=== PATIENT | male | born 1985 | race Caucasian/White ===

== ENCOUNTER 2022-02-07 14:20 | Emergency (ER) | payer MEDICAID, SELFPAY ==
[2022-02-07 14:26] VITALS: BP 112/68; PULSE 96; RESP 20; TEMP 37.1; O2SAT 98; BMI 32.4
--- NOTE | 2022-02-07 16:00 | ED_ITS ---
HPI - Wound/Laceration General Chief Complaint: Laceration/Wound Stated Complaint: Wound on Left Middle Finger Time Seen by Provider: 02/07/22 14:38 History of Present Illness HPI narrative: 36-year-old man presenting to the emergency department with his friend with concern of a laceration to the 3rd finger of the left hand by an angle terrazzo grinder. Apparently was projecting at home. Is current on tetanus. Does not think it is terribly deep. Has not taken any pain medication. Has been lightly bleeding but mostly slowed. He says he does not think it involves the bone because he can move his finger demonstrating moving his entire finger. Related Data Home Medications Medication Instructions Recorded Confirmed No Known Home Medications 02/07/22 02/07/22 Allergies Allergy/AdvReac Type Severity Reaction Status Date / Time No Known Drug Allergies Allergy Verified 02/07/22 14:29 Review of Systems Status of ROS: Reports: 6 or more systems reviewed and unremarkable except as noted in History and below PFSH PFS Social History Smoking Status: Current every day smoker What tobacco products do you use: cigarettes Do you use any of these nicotine containing products: E-Cigarettes Second hand tobacco smoke exposure: No How often do you have a drink containing alcohol: monthly or less AUDIT-C Alcohol total score: 1 Non-prescribed substance use: denies use Exam Narrative: Exam Narrative: Pleasant. NAD. Mildly anxious. Exam conducted by myself in Maori in some of his Maltese. Skin otherwise is warm and dry. Injury is limited to the distal aspect of the 3rd finger of the right hand. There is a laceration involving. Lunar skin r unning diagonally through the distal aspect of the nail and nailbed and then cutting the distal skin again. Total length laceration cm and half. This was soaking in saline water my initial evaluation. Return to anesthetize the finger left for some repair and better exam. Injected initially with Marcaine digital block. Some anesthesia is achieved at the still present on the ulnar distal finger. Return to inject further with the lidocaine further anesthesia achieved but ultimately never fully anesthetized. It does allow though for further examination do not see bony involvement. There is some understandable a cautery of the surface. I did scrub this finger with a Shur- Clens solution. Was able to place 1 5-0 Ethilon suture in the distal finger tip. Placement initiated on nail to stabilize laceration but this was too painful. Did have to return as above for repeat anesthesia. Ultimately seemed to be well adhered and felt could stabilize with bandaging. Antibiotic ointment and Band-Aid applied. Also placed a splint for protection. Const: Vital Signs, click to edit/add: Vital Signs - 24 hr 02/07/22 14:26 Temperature 98.8 F Pulse Rate [Right Pulse Oximeter] 96 Respiratory Rate 20 Blood Pressure [Ri ght Upper Arm] 112/68 Pulse Oximetry 98 Oxygen Delivery Me thod Room Air Documenting provider has reviewed patient's vital signs: yes Course Vital Signs Vital signs: Initial Vital Signs Temperature 98.8 F 02/07/22 14:26 Temperature Source Temporal Artery Scan 02/07/22 14:26 Pulse Rate 96 02/07/22 14:26 Respiratory Rate 20 02/07/22 14:26 Blood Pressure 112/68 02/07/22 14:26 Blood Pressure Mean 82 02/07/22 14:26 Blood Pressure Position Sitting 02/07/22 14:26 Pulse Oximetry 98 02/07/22 14:26 Oxygen Delivery Method 02/07/22 14:26 Vital Signs Temperature 98.8 F 02/07/22 14:26 Pulse Rate 96 02/07/22 14:26 Respiratory Rate 20 02/07/22 14:26 Blood Pressure 112/68 02/07/22 14:26 Pulse Oximetry 98 02/07/22 14:26 Oxygen Delivery Method 02/07/22 14:26 Temperature 98.8 F 02/07/22 14:26 Pulse Rate 96 02/07/22 14:26 Respiratory Rate 20 02/07/22 14:26 Blood Pressure 112/68 02/07/22 14:26 Pulse Oximetry 98 02/07/22 14:26 Oxygen Delivery Method 02/07/22 14:26 Discharge Plan Discharge Clinical Impression: Laceration of finger nail bed Patient Disposition: Home, Self-Care Condition: Improved Additional Instructions: Change dressing daily with antibiotic ointment for 3-4 days; then to a dry dressing. Suture out in 7 days. Okay to get wet but avoid soaking for the 1st week. May need to keep protected in some way as the nail continues to grow out. Trim the nail edges as available. Watch for spreading redness past the 1st knuckle, marked increase in pain/sw elling/heat, purulent drainage. Ibuprofen and elevation for comfort. Tonight if you need, here are a few [place] from [facility] el ap?sito diariamente con aundrae?ento antibi?rod sawyer 3-4 d?as; luego a un aderezo seco. Sutura en 7 d?as. Est? wayne mojarse, davide evite remojarse sawyer la 1? semana. Es posible que deba mantenerse protegido de alguna manera a medida que la u?a contin?a creciendo. Recorte los bordes de las u?as seg?n sea posible. Est? atento a la propagaci?n del enrojecimiento m?s all? del 1er nudillo, marcado aumento del dolor / hinchaz?n / calor, drenaje purulento. Ibuprofeno y elevaci?n para mayor comodidad. Esta noche, si lo necesita, aqu? hay algunos [place] de [facility] Prescriptions: No Action No Known Home Medications Follow Up/Referrals: Sarthak Carednas MD [Primary Care Provider] - Stand Alone Forms: [employer] Info Instructions
[2022-02-07] MEDS: BUPIVACAINE 0.25% 30 ML INJECTION (16:40)
--- NOTE | 2022-02-07 17:21 | ED.NURSE ---
Finger splint placed by
== END 2022-02-07 17:24 | disposition home or self-care (01) ==
PROVIDERS: Emergency Provider Family Medicine; PCP Surgery
DX: S61.313A Laceration without foreign body of left middle finger with damage to nail, initial encounter (principal); W31.2XXA Contact with powered woodworking and forming machines, initial encounter
CPT/HCPCS: 12001; 99283; J3490

== ENCOUNTER 2022-06-08 11:37 | Emergency (ER) | payer MEDICAID, SELFPAY ==
[2022-06-08 11:46] VITALS: BP 112/70; PULSE 69; RESP 22; TEMP 36.4; O2SAT 99; BMI 29.4
--- NOTE | 2022-06-08 12:01 | ED.ABDPAIN ---
HPI - Abdominal Pain General Chief Complaint: Abdominal Pain Stated Complaint: Severe stomach pain Time Seen by Provider: 06/08/22 11:53 History of Present Illness HPI narrative: This 37-year-old male comes in with severe distress complaining of pain in his upper epigastric region and radiating around to his back on the right side. He states that this pain began about 9 hours prior to arrival, at 3:00 a.m. in the morning. He has otherwise been in good health. Related Data Previous Rx's Medication Instructions Recorded hydrocodone 5 mg-acetaminophen 325 1 tab PO Q4-6H PRN pain #10 tabs 06/08/22 mg tablet Allergies Allergy/AdvReac Type Severity Reaction Status Date / Time No Known Drug Allergies Allergy Verified 06/08/22 11:53 Review of Systems Status of ROS Reports: 10 or more systems reviewed and unremarkable except as noted in History and below Narrative Constitutional: No fevers, no weight gain or loss. Eyes: No discharge. No vision changes. HENT: No congestion, no sore throat, no ear pain. Cardiovascular: No chest pain, no palpitations. Respiratory: No shortness of breath, no wheezes, no cough. Gastrointestinal: Severe upper epigastric abdominal pain. Genitourinary: No dysuria, no hematuria. Musculoskeletal: Normal range of motion. Skin: No rashes, no pruritis. Neurological: No dizziness, weakness, sensory change, speech change. Endo/Heme/Allergies: No bruising or bleeding. No polydipsia. Pysch: no suicidality, no anxiety, no insomnia. All other systems reviewed and are negative. PFSH [facility] Social History Smoking Status: Current every day smoker What tobacco products do you use: cigarettes Do you use any of these nicotine containing products: E-Cigarettes Second hand tobacco smoke exposure: No How often do you have a drink containing alcohol: monthly or less How many standard drinks containing alcohol do you have on a typical day: 1 or 2 AUDIT-C Alcohol total score: 1 Non-prescribed substance use: denies use service: No Exam Narrative: Exam Narrative: Constitutional: Well-developed, well-nourished, no acute distress. HEENT: Normocephalic, atraumatic. Neck: Normal range of motion. Nontender. Supple. Heart: Regular. No murmurs. Normal rate. Intact distal pulses. Lungs: Clear to auscultation. No chest discomfort. No wheezes, rhonchi, or rales. Abdomen: Severe tenderness in the upper epigastric region. No particular tenderness on palpating in the right upper quadrant. Genitalia: Deferred. Back: No midline tenderness. Normal range of motion. Extremities: Normal range of motion. No injury. Skin: Intact. No rash. Warm. No erythema or pallor. Neurologic: No altered sensation. No weakness. Alert and oriented. Psychiatric: No suicidality. No anxiety or depression. No insomnia. Nursing notes and vitals signs are reviewed. Const: Vital Signs, click to edit/add: Vital Signs - 24 hr 06/08/22 11:46 Temperature 97.6 F Pulse Rate [Right Pulse Oximeter] 69 Respiratory Rate 22 Blood Pressure [Ri ght Upper Arm] 112/70 Pulse Oximetry 99 Oxygen Delivery Me thod Room Air Course Vital Signs Vital signs: Initial Vital Signs Temperature 97.6 F 06/08/22 11:46 Temperature Source Temporal Artery Scan 06/08/22 11:46 Pulse Rate 69 06/08/22 11:46 Respiratory Rate 22 06/08/22 11:46 Blood Pressure 112/70 06/08/22 11:46 Blood Pressure Mean 84 06/08/22 11:46 Blood Pressure Position Sitting 06/08/22 11:46 Pulse Oximetry 99 06/08/22 11:46 Oxygen Delivery Method 06/08/22 11:46 Vital Signs Temperature 97.6 F 06/08/22 11:46 Pulse Rate 69 06/08/22 11:46 Respiratory Rate 22 06/08/22 11:46 Blood Pressure 112/70 06/08/22 11:46 Pulse Oximetry 99 06/08/22 11:46 Oxygen Delivery Method 06/08/22 11:46 Temperature 97.6 F 06/08/22 11:46 Pulse Rate 69 06/08/22 11:46 Respiratory Rate 22 06/08/22 11:46 Blood Pressure 112/70 06/08/22 11:46 Pulse Oximetry 99 06/08/22 11:46 Oxygen Delivery Method 06/08/22 11:46 MDM - Abdominal Pain MDM Narrative Medical decision making narrative: This patient comes in with severe upper epigastric abdominal pain. He did receive a GI cocktail initially which brought no relief to his symptoms. An IV was established where he received Dilaudid 0.5 mg which brought good relief to his pain. Ultrasound of the right upper quadrant does show large stone in the neck of the gallbladder. Lab results returned with some elevation of bilirubin and liver enzymes suspicious for some degree of obstruction. His temperature is normal and his white count is also normal. I spoke with the surgeon on-call, Dr. Robles, who will arrange for removal of the gallbladder tomorrow. She recommended 1 gram of ertapenem given now intravenously. Patient is okay to be discharged home and is scheduled to have surgery at 11:20 a.m. tomorrow. He is instructed to arrive at 10:00 a.m. and no food or drink after midnight. He is discharged home with a prescription for [place]. Lab Data Labs: Lab Results 06/08/22 06/08/22 06/08/22 Range/Units 12:20 12:20 15:24 WBC 7.17 (4.50-11.00) K/uL RBC 5.49 (4.30-5.90) m/uL Hgb 15.7 (13.5-17.5) gm/dL Hct 45.6 (37.0-53.0) % MCV 83 (80-100) fL MCH 29 (26-34) pg MCHC 34 (32-36) gm/dL RDW Coeff of Josefina 12.9 (11.5-15.5) % Plt Count 395 (140-440) K/uL Neut % (Auto) 59.4 (42.0-72.0) % Lymph % (Auto) 31.8 (20-44) % [place] % (Auto) 6.8 (0.0-11.0) % Eos % (Auto) 1.0 (0.0-7.0) % Baso % (Auto) 0.7 (0.0-3.0) % Neut # (Auto) 4.26 (1.7-7.0) K/uL Lymph # (Auto) 2.28 (0.90-2.90) K/uL [place] # (Auto) 0.50 (0.00-0.90) K/UL Eos # (Auto) 0.07 (0.00-0.50) K/uL Baso # (Auto) 0.05 (0.00-0.30) K/uL Sodium 138 (135-149) mmol/L Potassium 4.3 (3.6-5.1) mmol/L Chloride 108 (96-114) mmol/L Carbon Dioxide 24 (20-32) mmol/L BUN 12 (5-24) mg/dL Creatinine 0.6 (0.5-1.5) mg/dL Estimated Creat Clear 160.66 Estimated GFR 129 ml/min Glucose 100 (60-115) mg/dL Calcium 8.9 (8.4-10.6) mg/dL Total Bilirubin 1.7 H (0.1-1.5) mg/dL Direct Bilirubin 0.9 H (0.0-0.5) mg/dL AST 387 H (12-35) U/L ALT 278 H (4-50) U/L Alkaline Phosphatase 86 (40-150) U/L Total Protein 8.6 H (6.0-8.3) g/dL Albumin 4.8 (3.3-5.0) g/dL Lipase 203 (23-300) U/L SARS-CoV-2 (PCR) Negative SARS-CoV-2 (Negative) Discharge Plan Discharge Clinical Impression: Cholelithiasis Patient Disposition: Home w/ Parent or Adult Condition: Stable Additional Instructions: Take medication as needed for pain. Take no food or drink after midnight tonight. Return at 10:00 a.m. in the morning to prepare for surgical removal of the gallbladder. Prescriptions: New hydrocodone-acetaminophen 5-325 mg tablet 1 tab PO Q4-6H PRN (Reason: pain) Qty: 10 0RF Follow Up/Referrals: Sarthak Cardenas MD [Primary Care Provider] - Stand Alone Forms: [employer] Info Instructions
[2022-06-08] MEDS: ONDANSETRON 2 MG/ML inj 4 MG IVP (12:28)
[2022-06-08] MEDS: GI COCKTAIL (VISC LIDO/ANTACID) 30 ML PO (12:28)
[2022-06-08 12:29] LABS: Basophils Absolute Auto 0.05 K/uL (0.00-0.30); Basophils Percent Auto 0.7 % (0.0-3.0); Eosinophils Absolute Auto 0.07 K/uL (0.00-0.50); Hematocrit 45.6 % (37.0-53.0); Hemoglobin* 15.7 gm/dL (13.5-17.5); Immature Granulocytes Abs Auto 0.02 K/uL (0.00-0.30); Immature Granulocytes Pct Auto 0.3 %; Lymphocytes Absolute Auto 2.28 K/uL (0.90-2.90); Lymphocytes Percent Auto 31.8 % (20-44); Mean Corpuscular HGB Conc 34 gm/dL (32-36); Mean Corpuscular Hemoglobin 29 pg (26-34); Mean Corpuscular Volume 83 fL (80-100); Monocytes Percent Auto 6.8 % (0.0-11.0); Neutrophils Absolute Auto 4.26 K/uL (1.7-7.0); Neutrophils Percent Auto 59.4 % (42.0-72.0); Platelet Count* 395 K/uL (140-440); RDW Coefficient of Variation % 12.9 % (11.5-15.5); Red Blood Count 5.49 m/uL (4.30-5.90); White Blood Count* 7.17 K/uL (4.50-11.00)
[2022-06-08 12:36] LABS: Slide Review Reflex No
[2022-06-08 12:44] LABS: Albumin* 4.8 g/dL (3.3-5.0)
[2022-06-08 12:45] LABS: Chloride* 108 mmol/L (96-114); Potassium* 4.3 mmol/L (3.6-5.1); Sodium* 138 mmol/L (135-149)
[2022-06-08 12:47] LABS: Alkaline Phosphatase* 86 U/L (40-150); Aspartate Amino Transferase* 387 U/L (12-35); Bilirubin Direct* 0.9 mg/dL (0.0-0.5); Bilirubin Total* 1.7 mg/dL (0.1-1.5); Blood Urea Nitrogen* 12 mg/dL (5-24); Carbon Dioxide* 24 mmol/L (20-32); Creatinine* 0.6 mg/dL (0.5-1.5); Est. Creatinine Clearance* 160.66; Estimated Glomerular Filt Rate 129 ml/min; Total Protein* 8.6 g/dL (6.0-8.3)
[2022-06-08 12:48] LABS: Alanine Aminotransferase* 278 U/L (4-50); Calcium* 8.9 mg/dL (8.4-10.6); Glucose* 100 mg/dL (60-115); Lipase* 203 U/L (23-300)
--- NOTE | 2022-06-08 13:14 | CRLHL7_ITS ---
For Patients: As a result of the Century Cures Act, medical imaging exams and procedure reports are released immediately into your electronic medical record. You may view this report before your referring provider. If you have questions, please contact your health care provider. INDICATION: Epigastric pain TECHNIQUE: Ultrasound abdomen limited. Sonographic images of the right upper quadrant were obtained using pearce-scale and color Doppler images. COMPARISON: CT chest, abdomen and pelvis 12/10/2020 FINDINGS: Liver: The liver demonstrates diffusely increased echogenicity, consistent with hepatic steatosis. No masses. No intrahepatic biliary dilatation. Gallbladder: There is a gall stone within the gallbladder neck. The gallbladder is nondistended. Normal wall thickness. No pericholecystic fluid. Common bile duct: The common bile duct is visualized. Pancreas: Pancreas is obscured by overlying bowel gas. Right kidney: 10.6 cm. Normal echotexture and cortex. No masses, stones, or hydronephrosis. Vasculature: The proximal IVC is unremarkable. The aorta is obscured by overlying bowel gas. IMPRESSION: 1. Cholelithiasis with a positive sonographic Fink sign. No additional secondary signs of acute cholecystitis, therefore evaluation is equivocal for early acute cholecystitis. Recommend correlation with exam and LFTs. 2. Nondiagnostic evaluation of the pancreas and common bile duct. 3. Hepatic steatosis. Dictated by Piedad Gonzales MD @ 06/08/2022 3:10:20 PM (Electronically Signed)
[2022-06-08] MEDS: HYDROmorphone 0.5 mg/0.5 ml inj IVP (13:24)
[2022-06-08] MEDS: ERTAPENEM 1 GM in 0.9 % SODIUM CHLORIDE Mini-bag 100 ML IVPB (15:21)
[2022-06-08 16:01] LABS: SARS PCR* Negative SARS-CoV-2 (Negative)
--- NOTE | 2022-06-08 16:38 | P.GSCN_ITS ---
History of Present Illness Consult details Date Seen: 06/08/22 Consult date: 06/08/22 Narrative: 37-year-old male presented to emergency room with epigastric abdominal pain, and I was asked by Dr. Velasquez to see him in consultation. Patient states that his abdominal pain started last night at 3:00 a.m. in the morning. The pain woke him up from sleep. The pain was sharp and getting worse. Patient had nausea but no vomiting. He had pork for dinner the night before. He has never had anything similar to this. The pain radiates to his back and it is painful to take a deep breath. Patient denies taking Advil. He does drink alcohol once in a while and yesterday had 4 beers. I reviewed patient's chart. He was found to have a normal WBC of 7.1. Total bilirubin 1.7, direct bilirubin 0.9, AST 387, ALT 278, normal alkaline phosphatase and normal lipase. Patient had an ultrasound of his gallbladder that showed the stone near the neck of the gallbladder, the gallbladder wall was 2 mm thick. The common bile duct was not visualized. Review of Systems Narrative: General: no fevers HENT: no problems swallowing CV: no shortness of breath Resp: no cough GI: See above : no dysuria, no increased urinary frequency, no hematuria Skin: no new rashes Musculoskeletal: + back pain radiating from the abdomen Neuro: no muscle weakness Psyche: + depression [facility] Medical History (Updated 06/08/22 @ 16:42 by Jose Rodriguez MD) Depression Social History (Updated 06/08/22 @ 16:43 by Jose Rodriguez MD) Narrative: Patient admits to smoking and drinking alcohol once a month. 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 Smoking Status: Current every day smoker What tobacco products do you use: cigarettes Do you use any of these nicotine containing products: E-Cigarettes Second hand tobacco smoke exposure: No How often do you have a drink containing alcohol: monthly or less How many standard drinks containing alcohol do you have on a typical day: 1 or 2 AUDIT-C Alcohol total score: 1 Non-prescribed substance use: denies use service: No Meds Home Medications and Allergies Allergies Allergy/AdvReac Type Severity Reaction Status Date / Time No Known Drug Allergies Allergy Verified 06/08/22 11:53 Exam Narrative: Exam Narrative: General appearance: Alert, cooperative, and in no distress Pulmonary: Chest symmetric, lungs clear bilaterally Cardiovascular Heart: Regular rate and rhythm, S1, S2, no murmurs/rubs/gallops Gastrointestinal Abdominal: soft, not distended, tender to palpation in epigastrium and medial right upper quadrant with equivocal Fink sign. Skin: Normal skin color, texture, and turgor. No rashes or lesions. Psychiatric: Alert, cooperative, normal affect. Const: Vital Signs, click to edit/add: Vital Signs - 24 hr 06/08/22 11:46 Temperature 97.6 F Pulse Rate [Right Pulse Oximeter] 69 Respiratory Rate 22 Blood Pressure [Ri ght Upper Arm] 112/70 Pulse Oximetry 99 Oxygen Delivery Me thod Room Air Results Labs Labs: Abnormal lab results 06/08/22 Range/Units 12:20 Total Bilirubin 1.7 H (0.1-1.5) mg/dL Direct Bilirubin 0.9 H (0.0-0.5) mg/dL AST 387 H (12-35) U/L ALT 278 H (4-50) U/L Total Protein 8.6 H (6.0-8.3) g/dL Diabetes panel 06/08/22 Range/Units 12:20 Sodium 138 (135-149) mmol/L Potassium 4.3 (3.6-5.1) mmol/L Chloride 108 (96-114) mmol/L Carbon Dioxide 24 (20-32) mmol/L BUN 12 (5-24) mg/dL Creatinine 0.6 (0.5-1.5) mg/dL Glucose 100 (60-115) mg/dL Calcium 8.9 (8.4-10.6) mg/dL AST 387 H (12-35) U/L ALT 278 H (4-50) U/L Alkaline Phosphatase 86 (40-150) U/L Total Protein 8.6 H (6.0-8.3) g/dL Albumin 4.8 (3.3-5.0) g/dL Calcium panel 06/08/22 Range/Units 12:20 Calcium 8.9 (8.4-10.6) mg/dL Albumin 4.8 (3.3-5.0) g/dL Pituitary panel 06/08/22 Range/Units 12:20 Sodium 138 (135-149) mmol/L Potassium 4.3 (3.6-5.1) mmol/L Chloride 108 (96-114) mmol/L Carbon Dioxide 24 (20-32) mmol/L BUN 12 (5-24) mg/dL Creatinine 0.6 (0.5-1.5) mg/dL Glucose 100 (60-115) mg/dL Calcium 8.9 (8.4-10.6) mg/dL Adrenal panel 06/08/22 Range/Units 12:20 Sodium 138 (135-149) mmol/L Potassium 4.3 (3.6-5.1) mmol/L Chloride 108 (96-114) mmol/L Carbon Dioxide 24 (20-32) mmol/L BUN 12 (5-24) mg/dL Creatinine 0.6 (0.5-1.5) mg/dL Glucose 100 (60-115) mg/dL Calcium 8.9 (8.4-10.6) mg/dL Total Bilirubin 1.7 H (0.1-1.5) mg/dL AST 387 H (12-35) U/L ALT 278 H (4-50) U/L Alkaline Phosphatase 86 (40-150) U/L Total Protein 8.6 H (6.0-8.3) g/dL Albumin 4.8 (3.3-5.0) g/dL All other labs normal. Assessment and Plan Assessment and plan (1) Cholelithiasis: Status: Acute Plan 37-year-old male presents with epigastric abdominal pain that is most likely due to symptomatic cholelithiasis and possible choledocholithiasis. I discussed with the patient and his with a croze cutter his laborat ory and imaging findings. Patient has normal WBC. His LFTs are slightly elevated with normal alkaline phosphatase. Gallbladder ultrasound showed a stone in the neck of the gallbladder and on clinical exam he has tenderness to palpation in epigastrium and right upper quadrant with equivocal Fink sign. I am suspicious that his symptoms are caused by biliary colic and possibly choledocholithiasis. I recommended to proceed with laparoscopic cholecystectomy. The procedure was discussed in detail. The risks associated procedure including infection, bleeding, injury to intra-abdominal organs, injury to the common bile duct, and possible need for intraoperative cholangiogram were all discussed with the patient. Patient agreed to proceed. We will plan to do the surgery tomorrow. I offered the patient to either stay in the hospital overnight for his surgery tomorrow or go home with p.o. pain medications and come in tomorrow for his surgery. Patient elected to go home. Will give the patient IV ertapenem in case he does have a common bile duct stone. Will repeat his liver function tests tomorrow prior to his surgery and if those are normal, will proceed with laparoscopic cholecystectomy. If his bilirubin and alkaline phosphatase are elevated, we will most likely need to perform intraoperative cholangiogram. This note can serve as a preoperative H& P. Patient was already tested for COVID today and was negative. Patient will be given p.o. pain medications. He can continue clear liquid diet today and NPO at midnight.
== END 2022-06-08 16:55 | disposition home or self-care (01) ==
PROVIDERS: Emergency Provider Emergency Medicine Emergency Medical Services; PCP Surgery
DX: K80.20 Calculus of gallbladder without cholecystitis without obstruction (principal)
CPT/HCPCS: 36415; 76705; 80048; 80076; 83690; 85025; 87635; 96365; 96375; 99284; A9270; J1170; J1335; J2405

== ENCOUNTER 2022-06-09 09:57 | Day surgery (SDC) | payer MEDICAID, SELFPAY ==
[2022-06-09] VITALS (12 sets, daily range): BP systolic 112–130; BP diastolic 68–84; PULSE 67–90; RESP 12–16; TEMP 36.6–36.7; O2SAT 12–100; BMI 34.1
[2022-06-09] MEDS: SODIUM CHLORIDE 0.9 % (FLUSH) 10 ML SYRINGE IVF (10:40)
[2022-06-09] MEDS: LACTATED RINGERS 1000 ML 1,000 ML 100 ML IV (10:40)
[2022-06-09 10:49] LABS: Albumin* 4.4 g/dL (3.3-5.0)
[2022-06-09 10:52] LABS: Bilirubin Direct* 1.3 mg/dL (0.0-0.5); Bilirubin Total* 2.5 mg/dL (0.1-1.5); Total Protein* 7.7 g/dL (6.0-8.3)
[2022-06-09 10:53] LABS: Alanine Aminotransferase* 669 U/L (4-50); Alkaline Phosphatase* 96 U/L (40-150); Aspartate Amino Transferase* 527 U/L (12-35)
--- NOTE | 2022-06-09 11:38 | W.ANESCHARGE ---
Anesthesia Charges Start Date/Time Anesthesia Start Date: 06/09/22 Anesthesia Start Time: 12:57 Stop Date/Time Anesthesia Stop Date: 06/09/22 Anesthesia Stop Time: 14:30
--- NOTE | 2022-06-09 12:29 | CRLHL7_ITS ---
For Patients: As a result of the Century Cures Act, medical imaging exams and procedure reports are released immediately into your electronic medical record. You may view this report before your referring provider. If you have questions, please contact your health care provider. INDICATION: Intra op lap coli TECHNIQUE: Intraoperative C-arm fluoroscopy. IMPRESSION: Intraoperative C-arm fluoroscopy was provided. Fluoroscopy time 43 seconds. One image was captured demonstrating opacification of the common bile duct, hepatic ducts and small residual portion of the cystic duct. Clip is identified in the gallbladder fossa. Contrast noted within the duodenum. Dictated by Isai Aguilar MD @ 06/09/2022 3:14:18 PM (Electronically Signed)
--- NOTE | 2022-06-09 12:47 | P.GSOP_ITS ---
Operative Note Date of procedure: 06/09/22 Pre-op diagnosis: 1. Biliary colic. 2. Possible choledocholithiasis. Post-op diagnosis: 1. Acute cholecystitis. 2. Choledocholithiasis. Type of Procedure: 1. Laparoscopic cholecystectomy with intraoperative cholangiogram. Indications: 37-year-old male was seen in emergency room with epigastric and right upper quadrant pain that started less than 24 hours prior to presentation. Patient had fatty dinner and was woken up at night with pain. He had nausea but no vomiting. In the emergency room he was found to have elevated total bilirubin direct bilirubin as well as AST and ALT. His alkaline phosphatase was normal. A gallbladder ultrasound was obtained that showed a large stone in the neck of the gallbladder. The gallbladder wall was not thickened and there was no pericholecystic fluid. The common bile duct was not visualized. On clinical exam patient had tenderness to palpation in epigastrium and right upper quadrant with equivocal Fink sign. Patient's liver function tests were repeated the following day and continued to be elevated. Given patient's clinical information his physical exam, biliary colic and possible coli dull cholelithiasis was suspected, laparoscopic cholecystectomy with intraoperative cholangiogram were recommended. The procedure was discussed in detail. The risks associated the procedure including infection, bleeding, injury to intra- abdominal organs, and injury to the common bile duct were all discussed with the patient, and he agreed to proceed. Procedure Description: After discussing the risks and benefits of the procedure, the patient signed informed consent.? The operative site was marked and the patient was brought to the operating room and placed on the operating table in supine position.? Care was taken to pad the patient's pressure points.?? The patient was then intubated by anesthesia.?? The operative site was then prepped and draped in the usual sterile fashion.? A time-out was then performed. A 5-mm laparoscopy port was placed in the left upper quadrant guided by a 5-mm laparoscope placed into a translucent trochar.~ Passage through the layers of the abdominal wall was visualized with the laparoscope.~ A pneumoperitoneum was established. A 0-degree 5-mm laparoscope was advanced into the abdomen. The abdomen was briefly surveyed, and no adhesions were noted. A 10-mm port were placed infraumbilically and two more 5 mm ports were placed on the right under direct visualization by laparoscope. The camera was then changed to 10 mm 30- degree scope and placed into the abdomen through the 10 mm port. The left upper quadrant port entrance was examined and no injury to intra-abdominal organs was identified. The gallbladder was identified, the fundus grasped and retracted cephalad. The gallbladder appeared to be inflamed. Omentum was adherent to the anterior wall of the gallbladder. These adhesions were taken down with hook cautery.The infundibulum was grasped and retracted laterally, exposing the peritoneum overlying the triangle of Calot. This was then divided and exposed in a blunt fashion and with hook cautery. Common bile duct was not identified but care was taken not to injure it. The cystic duct was clearly identified and bluntly dissected circumferentially. Small vascular branches were seen medial to the cystic duct without a single cystic artery identified. These vascular branches were divided with hook cautery. The cystic duct were clearly going into the gallbladder. I then proceeded with intraoperative cholangiogram. The cystic duct was clipped with a 5 mm clip on the gallbladder side and a small ductotomy was made with laparoscopic Metzenbaum scissors. An additional 5 mm port was placed under direct visualization in the right upper quadrant. A blue introducer from an Arrow cholangiogram kit was placed through the port and a cholangiocatheter was placed through the introducer and directed into the cystic duct. The catheter was then clipped with a single 5 mm clip at the ductotomy site to secure it in place. Fluoroscopy was brought onto the field and Optiray 300 contrast dye was injected through the cholangiocatheter. The biliary tree was visualized and the contrast appeared to be emptying into the small bowel. There was good filling of the right and left hepatic tree. There were 3 small filling defects noted floating in the mid common bile duct. These were suspicious for common bile duct stones. 1 mg of glucagon IV was administered. The common bile duct was then flushed with normal saline. A repeat cholangiogram was obtained and no other filling defects were noted. At this time 5 mm clip on the cystic duct and cholangiocatheter were removed and the cholangiocatheter was removed from the cystic duct. The duct was then clipped with three 5 mm clips on the patient's side just below the ductotomy. The cystic duct was then divided at the level of ductotomy. The gallbladder was dissected from the liver bed in retrograde fashion using hookcautery. A small cystic artery was seen posterior and lateral to the gallbladder fossa. This was divided with hook cautery but was bleeding. This bleeding was controlled with 5 mm clips. The gallbladder was then dissected off the gallbladder fossa and placed into an Endo-Catch bag and removed through the infraumbilical incision. Surgical site was examined for bleeding. No bleeding was seen in the surgical field. The fascia of the infraumbilical incision was then closed with 0-0 vicryl using Rojas Ramon needle under direct visualization. Pneumoperitoneum was completely reduced after viewing removal of the trocars under direct vision. The skin was then closed with 4-0 monocryl and steristrips were applied. Instrument, sponge, and needle counts were correct at closure and at the conclusion of the case. The patient was transferred to PACU in stable condition. Findings: Acute cholecystitis with edema in the gallbladder wall. Filling defects in the common bile duct that were flushed with saline after administration of glucagon. Anesthesia: GETA Surgeon: Jose Rodriguez MD Estimated blood loss (mL): 10 Specimen: Gallbladder Condition: stable Disposition: PACU
[2022-06-09] MEDS: CEFAZOLIN 2 GM INJ IVP (13:13)
[2022-06-09] MEDS: BUPIVACAINE 0.25% 30 ML 10 ML INJECTION (13:20)
[2022-06-09] MEDS: IOPAMIDOL 50 ML VIAL INJECTION (13:40)
--- NOTE | 2022-06-09 14:33 | W.ANESCHARGE ---
Anesthesia Charges Start Date/Time Anesthesia Start Date: 06/09/22 Anesthesia Start Time: 12:57 Stop Date/Time Anesthesia Stop Date: 06/09/22 Anesthesia Stop Time: 14:30
[2022-06-09] MEDS: fentaNYL 100 MCG/2 ML inj 50 MCG IVP ×2 (14:37→14:44)
== END 2022-06-09 16:15 | disposition home or self-care (01) ==
PROVIDERS: PCP Surgery; Visit Provider Surgery
PROC: 0FT44ZZ Resection of Gallbladder, Percutaneous Endoscopic Approach (ICD-10-PCS; CPT 47562; principal; 2022-06-09 11:15)
DX: K80.12 Calculus of gallbladder with acute and chronic cholecystitis without obstruction (principal)
CPT/HCPCS: 47563; 00790; 36415; 74300; 76000; 80076; 88304; T1013; J0131; J0330; J0690; J1100; J2250; J2405; J2704; J3010; J3490; J7120; Q9967

== ENCOUNTER 2022-07-14 12:59 | Emergency (ER) | payer MEDICAID, SELFPAY ==
[2022-07-14 13:04] VITALS: BP 101/66; PULSE 97; RESP 18; TEMP 37.2; O2SAT 97; BMI 36.8
--- NOTE | 2022-07-14 14:03 | ED.BACK ---
HPI - Back Pain/Injury General Chief Complaint: Flank Pain Stated Complaint: Lower L back pain Time Seen by Provider: 07/14/22 13:46 History of Present Illness HPI Narrative: This 37-year-old male comes in reporting pain in his left lower back just above the belt line for the past 4 days. He does not describe any particular injury event or strenuous activity. He has been taking ibuprofen. He does not report any pain radiating down either leg. He does not report a prior history of back pain like this. He denies having any symptoms of dysuria and does not report a personal history of kidney stones. Related Data Previous Rx's Medication Instructions Recorded hydrocodone 5 mg-acetaminophen 325 1 tab PO Q4-6H PRN pain #20 tabs 06/12/22 mg tablet cyclobenzaprine 10 mg tablet 10 mg PO TID #15 tabs 07/14/22 ketorolac 10 mg tablet 10 mg PO Q8H 5 days #15 tabs 07/14/22 methylprednisolone 4 mg tablets in See Rx Instructions PO .COMPLEX 07/14/22 a dose pack (Medrol (Kenn)) #21 ea Allergies Allergy/AdvReac Type Severity Reaction Status Date / Time No Known Drug Allergies Allergy Verified 07/14/22 13:13 Review of Systems Status of ROS: Reports: 10 or more systems reviewed and unremarkable except as noted in History and below Narrative: Constitutional: No fevers, no weight gain or loss. Eyes: No discharge. No vision changes. HENT: No congestion, no sore throat, no ear pain. Cardiovascular: No chest pain, no palpitations. Respiratory: No shortness of breath, no wheezes, no cough. Gastrointestinal: No abdominal pain, no vomiting, no diarrhea. Genitourinary: No dysuria, no hematuria. Musculoskeletal: Normal range of motion. Pain in the left low back just above the belt line. Skin: No rashes, no pruritis. Neurological: No dizziness, weakness, sensory change, speech change. Endo/Heme/Allergies: No bruising or bleeding. No polydipsia. Pysch: no suicidality, no anxiety, no insomnia. All other systems reviewed and are negative. [facility] Medical History (Updated 07/14/22 @ 14:11 by Bo Velasquez MD) Depression ?F32.A - Depression, unspecified (ICD-10) Surgical History (Updated 06/12/22 @ 08:42 by Jose Rodriguez MD) S/P laparoscopic cholecystectomy ?Z90.49 - Acquired absence of other specified parts of digestive tract (ICD-10) Social History (Updated 06/08/22 @ 16:43 by Jose Rodriguez MD) Narrative: Patient admits to smoking and drinking alcohol once a month. 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 Smoking Status: Current every day smoker What tobacco products do you use: cigarettes Do you use any of these nicotine containing products: E-Cigarettes Second hand tobacco smoke exposure: No How often do you have a drink containing alcohol: monthly or less Alcohol type: beer How many standard drinks containing alcohol do you have on a typical day: 1 or 2 How often do you have six or more drinks on one occasion: Never AUDIT-C Alcohol total score: 1 Non-prescribed substance use: denies use service: No Exam Narrative: Exam Narrative: Constitutional: Well-developed, well-nourished, no acute distress. HEENT: Normocephalic, atraumatic. Neck: Normal range of motion. Nontender. Supple. Heart: Regular. No murmurs. Normal rate. Intact distal pulses. Lungs: Clear to auscultation. No chest discomfort. No wheezes, rhonchi, or rales. Abdomen: Normal bowel sounds. Nontender. No rebound tenderness. Genitalia: Deferred. Back: No midline tenderness. Normal range of motion. Pain is located in the low back left of midline just above the belt. No pain radiating down the leg. Extremities: Normal range of motion. No injury. Skin: Intact. No rash. Warm. No erythema or pallor. Neurologic: No altered sensation. No weakness. Alert and oriented. Psychiatric: No suicidality. No anxiety or depression. No insomnia. Nursing notes and vitals signs are reviewed. Const: Vital Signs, click to edit/add: Vital Signs - 24 hr 07/14/22 13:04 Temperature 98.9 F Pulse Rate [Pulse Oximeter] 97 Respiratory Rate 18 Blood Pressure [Ri ght Upper Arm] 101/66 Pulse Oximetry 97 Oxygen Delivery Me thod Room Air Course Vital Signs Vital signs: Initial Vital Signs Temperature 98.9 F 07/14/22 13:04 Temperature Source Temporal Artery Scan 07/14/22 13:04 Pulse Rate 97 07/14/22 13:04 Pulse Rhythm Regular 07/14/22 13:04 Respiratory Rate 18 07/14/22 13:04 Blood Pressure 101/66 07/14/22 13:04 Blood Pressure Mean 77 07/14/22 13:04 Blood Pressure Position Sitting 07/14/22 13:04 Pulse Oximetry 97 07/14/22 13:04 Oxygen Delivery Method Room Air 07/14/22 13:04 Vital Signs Temperature 98.9 F 07/14/22 13:04 Pulse Rate 97 07/14/22 13:04 Respiratory Rate 18 07/14/22 13:04 Blood Pressure 101/66 07/14/22 13:04 Pulse Oximetry 97 07/14/22 13:04 Oxygen Delivery Method Room Air 07/14/22 13:04 Temperature 98.9 F 07/14/22 13:04 Pulse Rate 97 07/14/22 13:04 Respiratory Rate 18 07/14/22 13:04 Blood Pressure 101/66 07/14/22 13:04 Pulse Oximetry 97 07/14/22 13:04 Oxygen Delivery Method Room Air 07/14/22 13:04 MDM - Back Pain/Injury MDM Narrative Medical decision making narrative: This patient comes in with pain in his low back as described above. He is not suspicious for a urinary cause for his pain. More likely it is a musculoskeletal condition. He does not describe any particular injury event or strenuous activity. I did discuss lab and imaging options with the patient which are declined in a process of shared decision making. He did receive an intramuscular injection of Toradol 30 mg and a prescription for Toradol, Flexeril, and Medrol Dosepak. I did advise that he follow-up with our spine clinic if not improving. Discharge Plan Discharge Clinical Impression: Low back pain Patient Disposition: Home, Self-Care Condition: Unchanged Additional Instructions: Take medication as prescribed. If not improving follow up with Spine Clinic. Call [phone] for appointment. Prescriptions: New cyclobenzaprine 10 mg tablet 10 mg PO TID Qty: 15 0RF ketorolac 10 mg tablet 10 mg PO Q8H 5 Days Qty: 15 0RF methylprednisolone [Medrol (Kenn)] 4 mg tablets,dose pack See Rx Instructions .ROUTE .COMPLEX Qty: 21 0RF Rx Instructions: orally per package directions No Action hydrocodone-acetaminophen 5-325 mg tablet 1 tab PO Q4-6H PRN (Reason: pain) Qty: 20 0RF Follow Up/Referrals: Sarthak Cardenas MD [Primary Care Provider] - Stand Alone Forms: Seer[employer]at[employer] Info Instructions
[2022-07-14] MEDS: KETOROLAC 30 MG/ML inj IM (14:18)
== END 2022-07-14 14:22 | disposition home or self-care (01) ==
PROVIDERS: Emergency Provider Emergency Medicine Emergency Medical Services; PCP Surgery
DX: M54.50 Low back pain, unspecified (principal)
CPT/HCPCS: 96372; 99284; J1885

== ENCOUNTER 2024-05-22 16:40 | Emergency (ER) | payer MEDICAID, SELFPAY ==
--- OUTSIDE RECORDS SUMMARY | 2024-05-22 16:41 | XMS_ITS | Clinical Summary ---
Author Organization [facility] Address [place], [place] [address] Care Team Providers Care State Game Warden Name Role Phone Sarthak Cardenas MD Primary Care Provider [phone] Allergies No known active allergies Medications No known medications Active Problems Problem Noted Date Diagnosed Date Mild traumatic brain injury 07/21/202207/05 S/P laparoscopic cholecystectomy 07/21/2022 07/21/2022 Contusion of chest wall 07/21/2022 07/22/19 Closed head injury without loss of consciousness 07/21/2022 07/21/2022 Cholelithiasis 07/21/2022 07/21/2022 Posttraumatic stress disorder 06/22/2017 Encounters Date Type Department Care Team Description 04/01/2024 8:30 AM SPAR MACHINE OPERATOR HELPER Nurse/Clinic Staff Only [facility] [address] [place] [address] Testing (HST Return/Download) 03/31/2024 2:15 PM SPAR MACHINE OPERATOR HELPER Nurse/Clinic Staff Only [facility] [address] [place] [address] Testing (HSt Setup) 03/31/2024 Procedure Only [facility] [address] [place] [address] Yaw Gillis MD Results (HST) 03/31/2024 Travel 03/09/2024 2:00 PM SPAR MACHINE OPERATOR HELPER Office Visit [facility] [address] [place] [address] Yaw Gillis MD Sleep Consult 03/09/2024 Travel from Last 3 Months Immunizations Name Administration Dates Next Due COVID-19 vaccine ([employer] 30mcg/0.3mL) PF, MDV 04/17/2021 Influenza, IIV4 03/17/2022,04/17/2021,05/05/2019 Td (Age >=7 Years) 10/04/2013 Social History Tobacco Use Types Packs/Day Years Used Date Smoking Tobacco: Some Days Cigarettes 0.3 19.1 Started: 2005 Smokeless Tobacco: Never Tobacco Cessation:Ready to Q uit: No; Counseling Given: Yes Comments:one or two cigs per day, none on weekends Alcohol Use Standard Drinks/Week Comments Not Currently 0 (1 standard drink = 0.6 oz pur e alcohol) occ PHQ-2 Answer Date Recorded PHQ-2 TOTAL SCORE 2 08/27/2021 Financial Resource Strain Answer Date R ecorded Difficulty of Paying Living Expenses Not on file 04/06/2021 Difficulty of Paying Living Expenses Not on file 04/06/2021 Sex and Gender Information Value Date Recorded Sex Assigned at Not on file Legal Sex Male 4:25 PM CDT Gender Identity Not on file Sexual Orientation Not on file Obstetrics History Last Filed Vital Signs Vital Sign Reading Time Taken Comments Blood Pressure 110/69 03/09/2024 1:46 PM SPAR MACHINE OPERATOR HELPER Pulse 83 03/09/2024 1:46 PM SPAR MACHINE OPERATOR HELPER Temperature 36.9 C (98.4 F) 03/07/2020 3:12 PM SPAR MACHINE OPERATOR HELPER Respiratory Rate 18 06/19/2017 10:56 AM CDT Oxygen Saturation 99% 03/09/2024 1:46 PM SPAR MACHINE OPERATOR HELPER Inhaled Oxygen Concentration - - Weight 79.8 kg (176 lb) 03/09/2024 1:46 PM SPAR MACHINE OPERATOR HELPER Height 164 cm (5' 4.57) 03/09/2024 1:46 PM SPAR MACHINE OPERATOR HELPER Body Mass Index 29.68 03/09/2024 1:46 PM SPAR MACHINE OPERATOR HELPER Plan of Treatment Upcoming Encounters Date Type Department Care Team (Late st Contact Info) Description 06/01/2024 4:00 PM SPAR MACHINE OPERATOR HELPER Office Visit [facility] [address] [place] [address] Yaw Gillis MD [address] [place] [address] Health Maintenance Due Date Last Done Comments Tdap 1998 HIV for age 15-65 2002 Hepatitis C screening for ag e 18-79 2005 Pneumococcal series for age 6-49 (1 of 2 - PCV) 2006 Lipids for age 35-44 2022 Depression screening for age 12+ 08/29/2022 08/29/2021, 08/28/2021, 08/27/2021, Additional history exists Tetanus booster 10/05/2023 10/04/2013 COVID-19 vaccine series ( season) 2023 04/17/2021, 08/30/2020, 08/02/2020 Influenza for age 9-49 12/06/2023 , 04/17/2021, 05/05/2019 BMI (ht and wt on same day) for age 18+ 03/09/2025 03/09/2024, 08/27/2021, 03/07/2020, Additional history exists Procedures Procedure Name Priority Date/Time Associated Diagnosis Comments HOME SLEEP TEST TYPE 3 PORTABLE Routine 03/31/2024 11:59 PM SPAR MACHINE OPERATOR HELPER LORI (obstructive sleep apnea) from Last 3 Months Results * HOME SLEEP TEST TYPE 3 PORTABLE (03/31/2024 11:59 PM SPAR MACHINE OPERATOR HELPER) Narrative Yaw Gillis MD - 03/31/2024 11:59 PM SPAR MACHINE OPERATOR HELPER Yaw Gillis MD 04/02/2024 11:32 AM Home Sleep Test Name: Michael Morrow Location: [facility] Study notes: This is a single night home sleep apnea test. The study is performed in the context of a clinical suspicion for sleep apnea. Michael Morrow ( 1985) is studied using a T3 Device using nasal pressure transducer, thoracoabdominal respiratory impedance plethysmography belts, pulse oximetry, snore microphone and actigraphy for body position. The study is scored by a RPSGT and interpreted by a Diplomate of the [place] [employer]. An [id number] review of the data has been performed by the interpreting physician. Scored following the most current version of the AASM Manual for the Scoring of Sleep and Associated Events. Respiratory Event Index (KRISTA) Oxygen Desaturation Index (JOSE R) REI4% 0.7 ODI4%: 0.3 Supine KRISTA: 1.6 ODI3%: 0.3 Lateral KRISTA: 0 Geoff Saturation 92 % Time Below 88% 0 minutes Weight: Wt Readings from Last 1 Encounters: 03/09/24 79.8 kg (176 lb) Other data: Recording Duration: 539.9 minutes Time in Bed: 411.9 minutes Estimated sleep efficiency [%]: 97 % Oximeter Quality: 99.7 % Flow Quality: 100.0 % RIP Quality: 100.0 % Supine time: 187.2 minutes Average SpO2: 95.4 % Pulse Average: 68.3 bpm Additional Comments: None IMPRESSION: Excessive Daytime Sleepiness (780.54, G47.10) - No Evidence of Obstructive Sleep Apnea RECOMMENDATIONS: - This is a negative home sleep study - A formal polysomnogram should be considered given a high false negative rate to home sleep testing. - However, if there is low clinical suspicion for obstructive sleep apnea, a negative home sleep test can be diagnostic. - Consider a referral to [facility] Weight [facility] for patients with a BMI > 30. - Follow-up with a provider to discuss results is recommended. - Patients should be advised to avoid critical tasks, such as driving, whenever drowsy. - Patients should try to achieve at least 7-8 hours of sleep on a consistent basis. - The KRISTA is a surrogate for AHI. For reimbursement and/or prior authorization purposes, it would be appropriate to list the KRISTA as an AHI when the latter is accepted, but not the former. Yaw Gillis M.D. Diplomate, Board of Sleep Medicine Recording Information Recording Date: 03/31/2024 Analysis Start Time: 11:51 PM Recording Tags: Analysis Stop Time: 6:43 AM Device Type: T3S Analysis Duration (TRT): 6h 51m Est. Total Sleep Time: 6h 51m Position and Analysis Time Duration Percentage Supine (in TST): 187.2 m 45.4 % Non-Supine (in TST): 224.7 m 54.6 % Upright (in TRT): 0 m 0 % Movement (in TST): 12.9 m 3.1 % Invalid Data (Excluded): 0 m 0 % Respiratory Indices Index Total Supine Non-supine Count Apneas + Hypopneas (AH): 0.7 /h 1.6 /h 0 /h 5 Apneas: 0.6 /h 1.3 /h 0 /h 4 Obstructive (OA): 0.6 /h 1.3 /h 0 /h 4 Mixed (MA): 0 /h 0 /h 0 /h 0 Central (CA): 0 /h 0 /h 0 /h 0 Hypopneas: 0.1 /h 0.3 /h 0 /h 1 Respiration Rate (per m): 15 /m 14.8 /m 15.3 /m Percentage of Sleep Duration Snore: 17.1 % 30.9 % 5.7 % 70.5 m Flow Limitation: 0 % 0 % 0 % 0 m Average Snore Volume 69.7 dB Percent of time greater than 80dB: Percent of 10.4 % Oxygen Saturation (SpO2) Total Supine Non-supine Oxygen Desaturation Index (JOSE R): 0.3 /h 0.6 /h 0 /h Average SpO2: 95.4 % 95.3 % 95.6 % Minimum SpO2: 92 % 92 % 92 % SpO2 Duration < 90% 0 % (0m) 0 % 0 % SpO2 Duration <= 88% 0 % (0m) 0 % 0 % Pulse in TST Quality Average: 68.3 bpm Oximeter: 99.7 % Maximum: 109 bpm Nasal Cannula: 100 % Minimum: 56 bpm Abdomen RIP: 100 % Duration < 40 bpm: 0 m Thorax RIP: 100 % Duration > 100 bpm: 0.6 m Yaw Gillis MD [facility] Final Result from Last 3 Months Insurance [facility] [phone] ESIS ESIS * Guarantor: [facility] [employer] Account Type Relation to Patient Date of Phone Billing Address [facility] - [employer] [facility] [address] [place] [place] [id number] Care Teams State Game Warden Relationship Specialty Start Date End Date Sarthak [place] [address] PCP - General Family Practice 03/19/17
[2024-05-22 16:44] VITALS: BP 125/76; PULSE 103; RESP 18; TEMP 37.7; O2SAT 96; BMI 30.7
--- NOTE | 2024-05-22 17:06 | ED.GENADULT ---
HPI - General Adult General Date Seen: 05/22/24 Chief complaint: Weakness Stated complaint: Chills, eye pain, bone achiness Time Seen by Provider: 05/22/24 16:46 History of Present Illness HPI narrative: Patient is a 39-year-old generally healthy man here for evaluation of 3 days of body aches, headache, right ear pain, cough, fatigue, chills and feeling hot. He has been taking ibuprofen and Tylenol. No documented fever. He is Nepalese speaking, history is obtained with the assistance of an vocational school teacher. Related Data Home Medications ?Medication ?Instructions ?Recorded ?Confirmed No Known Home Medications 05/22/24 05/22/24 Allergies Allergy/AdvReac Type Severity Reaction Status Date / Time No Known Drug Allergies Allergy Verified 05/22/24 16:53 Review of Systems Status of ROS: Reports: 6 or more systems reviewed and unremarkable except as noted in History and below [facility] Medical History Depression ?F32.A - Depression, unspecified (ICD-10) Surgical History S/P laparoscopic cholecystectomy ?Z90.49 - Acquired absence of other specified parts of digestive tract (ICD-10) Social History Narrative: Patient admits to smoking and drinking alcohol once a month. 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 Smoking Status: Current every day smoker What tobacco products do you use: cigarettes Do you use any of these nicotine containing products: E-Cigarettes Second hand tobacco smoke exposure: No How often do you have a drink containing alcohol: monthly or less Alcohol type: beer How many standard drinks containing alcohol do you have on a typical day: 1 or 2 How often do you have six or more drinks on one occasion: Never AUDIT-C Alcohol total score: 1 Non-prescribed substance use: denies use service: No Exam Narrative: Exam Narrative: Vital signs reviewed In general, alert, nontoxic Head: Normocephalic, atraumatic. Eyes: Sclera clear. Pupils equal and reactive. ENT: Mucous membranes moist. TMs normal bilaterally. Neck: Supple without adenopathy. Heart: Regular rate and rhythm without murmur. Lungs: Clear. No increased work of breathing, crackles or wheezes. Abdomen: Soft, nontender to palpation. Extremities: Well perfused, pulses intact. No significant edema. Neurologic: Alert, conversant. Speech fluent, face symmetric. Moves all extremities equally. Skin: Warm, dry well perfused. Affect: Normal. Const: Vital Signs, click to edit/add: Vital Signs - 24 hr 05/22/24 16:44 Temperature 99.9 F H Pulse Rate [Pulse Oximeter] 103 H Respiratory Rate 18 Blood Pressure [Ri t Upper Arm] 125/76 Pulse Oximetry 96 Oxygen Delivery Me thod Room Air Course Course ED Course: Overall presentation is most likely consistent with a viral process such as influenza. Viral swab pending. No other worrisome findings on exam at this time. Patient is influenza A positive. Continued supportive care with ibuprofen and/or Tylenol. Reasons to return discussed. Primary care follow-up recommended if not gradually improving over 7-10 days. Vital Signs Vital signs: Initial Vital Signs Temperature 99.9 F H 05/22/24 16:44 Temperature Source Temporal Artery Scan 05/22/24 16:44 Pulse Rate 103 H 05/22/24 16:44 Respiratory Rate 18 05/22/24 16:44 Blood Pressure 125/76 05/22/24 16:44 Blood Pressure Mean 92 05/22/24 16:44 Pulse Oximetry 96 05/22/24 16:44 Oxygen Delivery Method Room Air 05/22/24 16:44 Vital Signs Temperature 99.9 F H 05/22/24 16:44 Pulse Rate 103 H 05/22/24 16:44 Respiratory Rate 18 05/22/24 16:44 Blood Pressure 125/76 05/22/24 16:44 Pulse Oximetry 96 05/22/24 16:44 Oxygen Delivery Method Room Air 05/22/24 16:44 Temperature 99.9 F H 05/22/24 16:44 Pulse Rate 103 H 05/22/24 16:44 Respiratory Rate 18 05/22/24 16:44 Blood Pressure 125/76 05/22/24 16:44 Pulse Oximetry 96 05/22/24 16:44 Oxygen Delivery Method Room Air 05/22/24 16:44 Medical Decision Making Lab Data Labs: Lab Results 05/22/24 Range/Units 16:55 SARS-CoV-2 (PCR) Negative SARS-CoV-2 (Negative) Influenza Type A (PCR) POSITIVE PCR FLU A A (Negative) Influenza Type B (PCR) Negative PCR FLU B (Negative) RSV (PCR) Negative PCR RSV (Negative) Discharge Plan Discharge Clinical Impression: Influenza A Patient Disposition: Home, Self-Care Condition: Stable Instructions: Influenza (ED) Additional Instructions: You can continue to use ibuprofen 400 mg plus or minus Tylenol 1000 mg up to 3 times daily as needed for body aches, headache, ear pain etcetera. Influenza is a viral illness which typically last 7-10 days. There is no specific treatment needed. You should gradually improve after about a week of symptoms. If not, you should be seen again. If at any time you feel significantly worse, with severe shortness of breath, acute cold vomiting, or other new or worsening symptoms return for re-evaluation. See your primary clinic if you do not feel you are improving in that time frame. Prescriptions: No Action No Known Home Medications Follow Up/Referrals: Sarthak Cardenas MD [Primary Care Provider] - Stand Alone Forms: [employer] Info Instructions
[2024-05-22 17:41] LABS: PCR FLU A POSITIVE PCR FLU A (Negative); PCR FLU B Negative PCR FLU B (Negative); PCR RSV Negative PCR RSV (Negative); SARS PCR* Negative SARS-CoV-2 (Negative)
--- OUTSIDE RECORDS SUMMARY | 2024-05-22 17:47 | XMS_ITS | Clinical Summary ---
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 Name Role Phone Sarthak Cardenas MD Primary Care Provider [phone] Allergies No known active allergies Medications No known medications Active Problems Problem Noted Date Diagnosed Date Mild traumatic brain injury 07/21/202207/05 S/P laparoscopic cholecystectomy 07/21/2022 07/21/2022 Contusion of chest wall 07/21/2022 07/22/19 Closed head injury without loss of consciousness 07/21/2022 07/21/2022 Cholelithiasis 07/21/2022 07/21/2022 Posttraumatic stress disorder 06/22/2017 Encounters Date Type Department Care Team Description 04/01/2024 8:30 AM CALL CENTER SUPERVISOR Nurse/Clinic Staff Only [facility] [address] [place] [address] Testing (HST Return/Download) 03/31/2024 2:15 PM CALL CENTER SUPERVISOR Nurse/Clinic Staff Only [facility] [address] [place] [address] Testing (HSt Setup) 03/31/2024 Procedure Only [facility] [address] [place] [address] Yaw Gillis MD Results (HST) 03/31/2024 Travel 03/09/2024 2:00 PM CALL CENTER SUPERVISOR Office Visit [facility] [address] [place] [address] Yaw Gillis MD Sleep Consult 03/09/2024 Travel from Last 3 Months Immunizations Name Administration Dates Next Due COVID-19 vaccine ([employer] 30mcg/0.3mL) PF, MDV 04/17/2021 Influenza, IIV4 [...] Comments Blood Pressure 110/69 03/09/2024 1:46 PM CALL CENTER SUPERVISOR Pulse 83 03/09/2024 1:46 PM CALL CENTER SUPERVISOR Temperature 36.9 C (98.4 F) 03/07/2020 3:12 PM CALL CENTER SUPERVISOR Respiratory Rate 18 06/19/2017 10:56 AM CDT Oxygen Saturation 99% 03/09/2024 1:46 PM CALL CENTER SUPERVISOR Inhaled Oxygen Concentration - - Weight 79.8 kg (176 lb) 03/09/2024 1:46 PM CALL CENTER SUPERVISOR Height 164 cm (5' 4.57) 03/09/2024 1:46 PM CALL CENTER SUPERVISOR Body Mass Index 29.68 03/09/2024 1:46 PM CALL CENTER SUPERVISOR Plan of Treatment Upcoming Encounters Date Type Department Care Team (Late st Contact Info) Description 06/01/2024 4:00 PM CALL CENTER SUPERVISOR Office Visit [facility] [address] [place] [address] Yaw Gillis MD [address] [place] [address] Health Maintenance Due Date Last Done Comments [...] TYPE 3 PORTABLE Routine 03/31/2024 11:59 PM CALL CENTER SUPERVISOR LORI (obstructive sleep apnea) from Last 3 Months Results * HOME SLEEP TEST TYPE 3 PORTABLE (03/31/2024 11:59 PM CALL CENTER SUPERVISOR) Narrative Yaw Gillis MD - 03/31/2024 11:59 PM CALL CENTER SUPERVISOR Yaw Gillis MD 04/02/2024 11:32 AM Home Sleep Test Name: Michael Morrow Location: [facility] Study notes: This is a single night home sleep apnea test. The study is performed in the context of a clinical suspicion for sleep apnea. Mcihael Morrow ( 1985) is studied using a T3 Device using nasal pressure transducer, thoracoabdominal respiratory impedance plethysmography belts, pulse oximetry, snore microphone and actigraphy for body position. The study is scored by a RPSGT and interpreted by a Diplomate of the [place] [employer]. An [id number] review of the data has been performed [...] Final Result from Last 3 Months Insurance [facility] [employer] [phone] [employer] ESIS * Guarantor: [facility] [employer] Account Type Relation to Patient Date of Phone Billing Address [facility] [employer] [place] [facility] [place] [address] [place] [address] [place] [phone] Care Teams Flower Cutter Relationship Specialty Start Date End Date [place]arth[place] [address] PCP - General Family Practice 03/19/17
== END 2024-05-22 18:10 | disposition home or self-care (01) ==
LOC: ED 17:45
PROVIDERS: Emergency Provider Emergency Medicine; PCP Surgery
DX: J10.1 Influenza due to other identified influenza virus with other respiratory manifestations (principal)
CPT/HCPCS: 87631; 99282; 99283